=== PATIENT | male | born 1945 | race Hispanic/Latino ===

== ENCOUNTER 2023-09-16 17:46 | Emergency (ER) | payer OTHER, SELFPAY ==
[2023-09-16 18:01] VITALS: PULSE 74; RESP 18; TEMP 37.2; O2SAT 98
[2023-09-16 18:10] VITALS: BP 140/80
--- NOTE | 2023-09-16 18:41 | ED.URI ---
HPI - URI/Sore Throat General Chief Complaint: Upper Respiratory Infection Stated Complaint: Cough Time Seen by Provider: 09/16/23 18:34 Source: patient, family and RN notes reviewed Mode of arrival: ambulatory Limitations: no limitations History of Present Illness HPI Narrative: Patient presents today complaining of a one-week history of cough that is worse when he lays flat. Denies fever, congestion, rhinorrhea, sore throat. No history of asthma, COPD, CHF. He has tried no [id number] medication for symptoms prior to arrival. Related Data Allergies Allergy/AdvReac Type Severity Reaction Status Date / Time No Known Allergies Allergy Unverified 10/09/13 17:26 Review of Systems Review of Systems: CONSTITUTIONAL: Denies body aches, fever, chills, or sweats. EYES: Denies visual changes, redness, or discharge. ENT: Denies rhinorrhea, congestion, sore throat, or otalgia. CARDIOVASCULAR: Denies chest pain, palpitations, or edema. RESPIRATORY:+ cough, shortness of breath GASTROINTESTINAL: Denies abdominal pain, nausea, vomiting, or diarrhea. GENITOURINARY: Denies dysuria or hematuria. SKIN: Denies rash, itching, or wounds. MUSCULOSKELETAL: Denies back pain, joint pain, or myalgia. NEUROLOGIC: Denies headache, numbness, tingling, or weakness. PSYCH: Denies depression or anxiety. PMFSH Comments At time of signature, I have reviewed and agree with nursing past medical, surgical, social and family history unless otherwise noted. Please see nursing chart for further information. There is no relevant family history pertinent to the presenting complaint Exam Narrative: GENERAL: Well-appearing, well-nourished, and in no acute distress. HEAD: Normocephalic, atraumatic. EYES: EOMI. No redness or drainage. Conjunctivae normal. ENT: Mucous membranes pink and moist. Nares clear. No rhinorrhea. TMs normal bilaterally. Throat normal. Uvula midline. NECK: Normal AROM. Supple. No lymphadenopathy. CHEST: No respiratory distress. Clear to auscultation. HEART: Regular rate and rhythm. No murmur appreciated. EXTREMITIES: Normal range of motion. No edema. SKIN: Warm, dry, no rash. Capillary refill normal. Normal skin turgor. NEURO: No focal deficits. Alert and oriented x3. Gait steady. PSYCH: Normal affect. No signs of depression or anxiety. Course Course Level of Care: Express Care Visit Vital Signs Vital signs: Vital Signs Temperature 99.0 F 09/16/23 18:01 Pulse Rate 74 09/16/23 18:01 Respiratory Rate 18 09/16/23 18:01 Pulse Oximetry 98 09/16/23 18:01 Oxygen Delivery Room Air 09/16/23 18:01 Temperature 99.0 F 09/16/23 18:01 Pulse Rate 74 09/16/23 18:01 Respiratory Rate 18 09/16/23 18:01 Blood Pressure 140/80 09/16/23 18:10 Pulse Oximetry 98 09/16/23 18:01 Oxygen Delivery Room Air 09/16/23 18:01 Reviewed MDM - URI/Sore Throat MDM Narrative Medical decision making narrative: Patient will be treated with azithromycin for his symptoms. Recommend Mucinex. Symptoms discussed on when to go to the ER. Anticipatory guidance given. Differential Diagnosis Differential diagnosis: Likely upper respiratory infection, viral infection, bronchitis and other (Pneumonia) Critical Care Time Critical Care Time Critical Care Time: No Discharge Plan Discharge Clinical Impression: Acute lower respiratory infection Patient Disposition: Home, Self-Care Condition: Stable Additional Instructions: Please take the azithromycin as prescribed until gone. Take Mucinex to help with cough. Rest and stay hydrated. Follow-up with your PCP next week if symptoms are not improving. Go to the ER immediately if symptoms worsen. Your blood pressure was elevated above 120/80 today at Urgent Care. This puts you above the threshold for follow up. Please schedule a followup visit with your personal physician as soon as possible, for further evaluation and treatment. Even blood pressu
== END 2023-09-16 18:53 | disposition home or self-care (01) ==
PROVIDERS: Emergency Provider Nurse Practitioner; PCP Registered Nurse
DX: J22 Unspecified acute lower respiratory infection (principal)
CPT/HCPCS: 99213; G0463